=== PATIENT | male | born 1965 | race Caucasian/White ===

== ENCOUNTER 2021-08-15 02:52 | Observation (INO) ==
[2021-08-15 03:21] LABS: BASOPHILS % (AUTO) 0.3 % (0.0-3.0); EOSINOPHILS # (AUTO) 0.1 K/ul (0.0-0.7); EOSINOPHILS % (AUTO) 0.7 % (0.0-7.0); HEMATOCRIT 39.1 % (42.0-52.0); HEMOGLOBIN 12.8 g/dl (14.0-18.0); IMMATURE GRANULOCYTE # (AUTO) 0.1 (0.0-1.0); IMMATURE GRANULOCYTE % (AUTO) 0.7 % (0.0-5.0); LYMPHOCYTES # (AUTO) 3.1 K/uL (0.60-3.4); LYMPHOCYTES % (AUTO) 32.2 (10.0-50.0); MEAN CORPUSCULAR HEMOGLOBIN 34.1 pg (27.0-31.0); MEAN CORPUSCULAR HGB CONC 32.7 (31.8-35.4); MEAN CORPUSCULAR VOLUME 104.3 fl (80.0-94.0); MONOCYTES # (AUTO) 0.7 K/uL (0.4-2.0); MONOCYTES % (AUTO) 7.8 (0-10); NEUTROPHILS # (AUTO) 5.5 K/ul (2.0-6.9); NEUTROPHILS % (AUTO) 58.3 % (42.2-75.2); PLATELET COUNT 191 10^3/uL (140-440); RDW COEFFICIENT OF VARIATION 16.8 % (11.6-14.8); RED BLOOD COUNT 3.75 10^6/ul (4.70-6.10); WHITE BLOOD COUNT 9.52 K/ul (4.2-10.2)
[2021-08-15] MEDS ORDERED: ZOFRAN 4 MG/2 ML IVP ONE (03:26)
[2021-08-15] MEDS ORDERED: SODIUM CHLORIDE 1,000 ML IV STA (03:26)
[2021-08-15 03:32] LABS: ALANINE AMINOTRANSFERASE 18.8 U/L (0-50); ALBUMIN 4.99 g/dL (3.5-5.0); ALKALINE PHOSPHATASE 119.2 U/L (38-126); ASPARTATE AMINO TRANSFERASE 30.6 U/L (17-59); BILIRUBIN,TOTAL 0.58 mg/dL (0.2-1.3); BLOOD UREA NITROGEN 14.6 mg/dL (9-20); CALCIUM 9.22 mg/dL (8.4-10.2); CARBON DIOXIDE 24.3 mmol/L (22-30.0); CHLORIDE 103.9 mmol/L (98-107); CREATINE KINASE 90.5 U/L (55-170); GLUCOSE 134.9 mg/dL (74-106); TOTAL PROTEIN 8.05 g/dL (6.3-8.2)
--- NOTE | 2021-08-15 03:32 | DI ---
EXAM: Chest, one-view HISTORY: Chest Pain FINDINGS: Cardiac and mediastinal contours are normal. Pulmonary vasculature is normal. Lungs are clear. Bony thorax is unremarkable. IMPRESSION: Within normal limits
--- NOTE | 2021-08-15 03:35 | ED.PDOC ---
General ED Provider: Dr. JULIETTE HUNTER Chief Complaint: Chest Pain Stated Complaint: Patient states that he has had intermittent right upper quadrant chest pain radiating to the back for which she has seen her PCP for and had had chest x rays and Aortic U/S which were normal recently. States that he pain comes at rest and goes in minutes and is associated with Diaphoresis and sometimes nausea. He is supposed to be set up for a cardiology consult soon. He was told to come to the ER if the pain got worse. Time Seen by Provider: 08/15/21 02:56 Mode of Arrival: Walk-In Information Source: Patient Primary Care Provider: ROBERTO PENNINGTON Nursing and Triage Documentation Reviewed and Agree: Yes Does patient meet sepsis criteria?: No System Inflammatory Response Syndrome: Not Applicable Sepsis Protocol: For patient's 13 years and over: Temp is 96.8 and below OR 101 and greater Pulse >90 BPM Resp >20/minute Acutely Altered Mental Status Are patient's symptoms suggestive of a new infection, such as: -Pneumonia -Skin, Soft Tissue -Endocarditis -UTI -Bone, Joint Infection -Implantable Device -Acute Abdominal Infection -Wound Infection -Meningitis -Blood Stream Catheter Infection -Unknown Review of Systems Review Of Systems Constitutional: Reports Diaphoresis Eyes: Reports No symptoms Ears, Nose, Mouth, Throat: Reports No symptoms Respiratory: Reports No symptoms Cardiac: Reports Chest pain GI: Reports Abdominal pain (Right upper quadrant ), Nausea and Vomiting : Reports No symptoms Musculoskeletal: Reports No symptoms Neurological: Reports Anxiety Endocrine: Reports No symptoms All Other Systems: Reviewed and Negative Physical Exam Physical Exam Appearance: Reports Ill-appearing and Obese Ill-appearing: Mild Pain Distress: Mild Eyes: Reports Conjunctiva clear ENT: Reports Nose normal and Oropharynx normal Neck: Not Examined Respiratory: Reports Airway patent, Breath sounds clear and Breath sounds equal Cardiovascular: Reports Bradycardia GI/: Reports Soft, Nontender, No masses and Bowel sounds normal Musculoskeletal: Reports Normal strength, ROM intact and No edema Skin: Reports Warm and Dry Neurological: Reports Sensation intact, Motor intact, Alert and Oriented Psychiatric: Reports Anxious Interpretation Radiology Interpretation Radiology Interpretation By: Radiologist Radiology Results: Negative Exam Interpreted: Portable CXR Radiology Interpretation By: Radiologist Radiology Results: Negative Exam Interpreted: CT Scan (Chest abdomen and pelvis ) Healthcare Account Manager Rate: Sahil Rhythm: Sinus Ectopy: None EKG Interpretation Time of EKG #1: 02:57 Rate: Sahil Rhythm: Sinus Ectopy: None Gaines: NL ST Segment: Normal Interpretation: Voltage Critieria for LVH with R wave in aVL > 11 mm( 13) Critical Care Note Critical Care Note Total Critical Care Time (mins): 30 Course Course Hematology/Chemistry: 08/15/21 02:57 08/15/21 02:57 Orders, Labs, Meds: Lab Review 08/15/21 08/15/21 08/15/21 02:57 02:57 03:20 WBC 9.52 RBC 3.75 L Hgb 12.8 L Hct 39.1 L MCV 104.3 H MCH 34.1 H MCHC 32.7 RDW Coeff of Raymundo 16.8 H Plt Count 191 Immature Gran % (Auto) 0.7 Neut % (Auto) 58.3 Lymph % (Auto) 32.2 Eagle % (Auto) 7.8 Eos % (Auto) 0.7 Baso % (Auto) 0.3 Neut # (Auto) 5.5 Lymph # (Auto) 3.1 Eagle # (Auto) 0.7 Eos # (Auto) 0.1 Baso # (Auto) 0.0 Immature Gran # (Auto) 0.1 Sodium 142.0 Potassium 4.00 Chloride 103.9 Carbon Dioxide 24.3 Anion Gap 17.80 BUN 14.6 Creatinine 1.30 H Estimated GFR (MDRD) 57.00 BUN/Creatinine Ratio 11.23 Glucose 134.9 H Calcium 9.22 Total Bilirubin 0.58 AST 30.6 ALT 18.8 Alkaline Phosphatase 119.2 Total Creatine Kinase 90.5 Troponin I < 0.012 Total Protein 8.05 Albumin 4.99 Globulin 3.06 Albumin/Globulin Ratio 1.63 Adenovirus (PCR) Not detected B. pertussis DNA (PCR) Not detected B.parapertussis DNA PCR Not detected C. pneumoniae DNA (PCR) Not detected Coronavirus OC43 (PCR) Not detected Coronavirus HKU1 (PCR) Not detected Coronavirus 229E (PCR) Not detected Coronavirus NL63 (PCR) Not detected Human Metapneumovir PCR Not detected Influenza Type A (PCR) Not detected Influenza B (RT-PCR) Not detected M. pneumoniae (PCR) Not detected Parainfluenza 1 (PCR) Not detected Parainfluenza 2 (PCR) Not detected Parainfluenza 3 (PCR) Not detected Parainfluenza 4 (PCR) Not detected RSV (PCR) Not detected Entero/Rhino (PCR) Not detected SARS-CoV-2 (PCR) Not detected Orders Category Date Time Status EKG-(ED ONLY) Stat CARDIO 08/15/21 02:57 Completed CBC W/ AUTO DIFF Stat LAB 08/15/21 02:57 Completed COMPREHENSIVE METABOLIC PANEL Stat LAB 08/15/21 02:57 Completed CREATINE KINASE Stat LAB 08/15/21 02:57 Completed RESPIRATORY PANEL 2.1 (PCR) Stat LAB 08/15/21 03:20 Completed TROPONIN I Stat LAB 08/15/21 02:57 Completed Ondansetron HCl/Pf [Zofran 4 mg/2 ml] MEDS 08/15/21 03:26 Discontinued 4 mg IVP ONCE ONE Sodium Chloride 0.9% [Sodium Chloride] 1,000 ml MEDS 08/15/21 03:26 Discontinued IV BOLUS CHEST, 1V AP ONLY Stat RADS 08/15/21 02:[address] ABD/PEL WO RENAL STONE PROT Stat RADS 08/15/21 03:[address] CHEST W/O CONTRAST Stat RADS 08/15/21 04:22 Completed Medications Discontinued Medications Generic Name Dose Route Start Last Admin Trade Name Freq PRN Reason Stop Dose Admin Sodium Chloride 1,000 mls @ 1,000 mls/hr 08/15/21 03:26 08/15/21 03:32 Sodium Chloride IV 08/15/21 04:25 1,000 mls/hr BOLUS STA Administration Ondansetron HCl 4 mg 08/15/21 03:26 08/15/21 03:32 Ondansetron Hcl/Pf 4 Mg/2 Ml Sdv IVP 08/15/21 03:27 4 mg ONCE ONE Administration Vital Signs: Temp Pulse Resp BP Pulse Ox 08/15/21 02:56 97.2 F L 55 L 18 189/81 H 99 LELAND Risk Score Age >/= 65: No >/= 3 CAD Risk Factors: No Known CAD (Stenosis >/= 50%): No ASA Use in Past 7 Days: No Severe Angina (>/= 2 episodes in 24 hours): Yes EKG ST Changes >/= 0.5mm: No Postive Cardiac Marker: No LELAND Total Score: 1 LELAND Risk Score: Risk Score Odds of by 30D 0 0.1 (0.1-0.2) 1 0.3 (0.2-0.3) 2 0.4 (0.3-0.5) 3 0.7 (0.6-0.9) 4 1.2 (1.0-1.5) 5 2.2 (1.9-2.6) 6 3.0 (2.5-3.6) 7 4.8 (3.8-6.1) Discharge Plan Discharge Patient Disposition: PLACED OBSERVATION Discharge Problem: Chest pain ED Provider: JULIETTE HUNTER Condition: Fair Physician Progress Note: []
[2021-08-15 03:44] LABS: TROPONIN I < 0.012 ng/ml (0.0000-0.120)
[2021-08-15 04:37] LABS: ADENOVIRUS (PCR) NOT DETECTED (NOT DETECT); BORDETELLA PARAPERTUSSIS (PCR) NOT DETECTED (NOT DETECT); BORDETELLA PERTUSSIS (PCR) NOT DETECTED (NOT DETECT); CHLAMYDIA PNEUMONIAE (PCR) NOT DETECTED (NOT DETECT); CORONAVIRUS 229E (PCR) NOT DETECTED (NOT DETECT); CORONAVIRUS HKU1 (PCR) NOT DETECTED (NOT DETECT); CORONAVIRUS NL63 (PCR) NOT DETECTED (NOT DETECT); CORONAVIRUS OC43 (PCR) NOT DETECTED (NOT DETECT); HUMAN METAPNEUMOVIRUS (PCR) NOT DETECTED (NOT DETECT); HUMAN RHINOVIRUS/ENTEROV (PCR) NOT DETECTED (NOT DETECT); INFLUENZA B (PCR) NOT DETECTED (NOT DETECT); MYCOPLASMA PNEUMONIAE (PCR) NOT DETECTED (NOT DETECT); PARAINFLUENZA VIRUS 1 (PCR) NOT DETECTED (NOT DETECT); PARAINFLUENZA VIRUS 2 (PCR) NOT DETECTED (NOT DETECT); PARAINFLUENZA VIRUS 3 (PCR) NOT DETECTED (NOT DETECT); PARAINFLUENZA VIRUS 4 (PCR) NOT DETECTED (NOT DETECT); RESPIRATORY SYNCYTIAL V (PCR) NOT DETECTED (NOT DETECT); SARS_COV_2 (PCR) NOT DETECTED (NOT DETECT)
--- NOTE | 2021-08-15 04:56 | CT ---
Exam: CT of the chest without contrast History: Lower chest pain Technique: [address] of the chest without contrast FINDINGS: Lung windows show no pulmonary parenchymal abnormality. Minor atherosclerotic calcificati on of the aorta without aneurysm. Atherosclerotic calcification of the coronary arteries. No medias tinal lymphadenopathy. No acute abnormalities of the chest wall soft tissues or bony thorax. Mild m ultilevel endplate spondylosis of the thoracic spine. No central canal stenosis. No abnormalities o f the upper abdomen. Impression: 1. No acute findings of the chest All CT scans are performed using dose optimization techniques as appropriate to the performed exam an d include at least one of the following: Automated exposure control, adjustment of the mA and/or kV according t o size, and the use of iterative reconstruction technique.
--- NOTE | 2021-08-15 04:59 | CT ---
Exam: CT of the abdomen and pelvis without contrast History: Right upper quadrant pain Technique: [address] of the abdomen and pelvis without contrast FINDINGS: No significant liver abnormality. The adrenals, pancreas and spleen are unremarkable. Th e gallbladder is elongated measuring 11 cm long axis. No calcified cholelithiasis is seen. No peric holecystic inflammation. Minor hiatus hernia. Kidneys and proximal collecting system are unremarkab le. The appendix is normal. Bowel loops demonstrate normal caliber. No inflamatory change seen in the mesentery or retroperitoneum. Vascular structures appear normal by noncontrast CT. Pelvic genitourinary structures appear normal. Pelvic bowel loops are unremarkable. No inflammatory change in the pelvic fat. No acute abnormality of the abdominal or pelvic skeleton. Mild degenerat khoa change of the lumbar spine. Impression: 1. No inflammatory process, bowel or urinary obstruction 2. Elongated hydropic gallbladder without surrounding inflammation or visible calculus. All CT scans are performed using dose optimization techniques as appropriate to the performed exam an d include at least one of the following: Automated exposure control, adjustment of the mA and/or kV according t o size, and the use of iterative reconstruction technique.
[2021-08-15] MEDS ORDERED: ASPIRIN CHEWABLE PO STA (05:40)
[2021-08-15] MEDS ORDERED: NITROSTAT SL PRN (05:41)
[2021-08-15] MEDS ORDERED: TYLENOL PO PRN (05:41)
[2021-08-15] MEDS ORDERED: ATROPINE SULFATE PFS IVP PRN (05:41)
[2021-08-15] MEDS ORDERED: ASPIRIN EC PO SCH (08:30)
[2021-08-15] MEDS ORDERED: ZESTRIL PO SCH (09:00)
[2021-08-15] MEDS ORDERED: SYNTHROID PO SCH (09:00)
[2021-08-15] MEDS ORDERED: DASATINIB PO SCH ×2 (09:00→12:00)
[2021-08-15] MEDS ORDERED: DECADRON IM ONE (09:16)
[2021-08-15] MEDS ORDERED: TORADOL IVP ONE (09:17)
[2021-08-15 09:19] LABS: BASOPHILS % (AUTO) 0.1 % (0.0-3.0); HEMATOCRIT 33.8 % (42.0-52.0); HEMOGLOBIN 11.4 g/dl (14.0-18.0); IMMATURE GRANULOCYTE % (AUTO) 0.5 % (0.0-5.0); LYMPHOCYTES # (AUTO) 0.9 K/uL (0.60-3.4); LYMPHOCYTES % (AUTO) 10.8 (10.0-50.0); MEAN CORPUSCULAR HEMOGLOBIN 34.8 pg (27.0-31.0); MEAN CORPUSCULAR HGB CONC 33.7 (31.8-35.4); MONOCYTES # (AUTO) 0.4 K/uL (0.4-2.0); MONOCYTES % (AUTO) 4.3 (0-10); NEUTROPHILS # (AUTO) 7.1 K/ul (2.0-6.9); NEUTROPHILS % (AUTO) 84.3 % (42.2-75.2); PLATELET COUNT 164 10^3/uL (140-440); RDW COEFFICIENT OF VARIATION 16.9 % (11.6-14.8); RED BLOOD COUNT 3.28 10^6/ul (4.70-6.10); WHITE BLOOD COUNT 8.39 K/ul (4.2-10.2)
[2021-08-15 09:23] LABS: CREATINE KINASE 88.3 U/L (55-170)
[2021-08-15] MEDS ORDERED: PROTONIX PO SCH (09:30)
[2021-08-15 09:31] LABS: CHOLESTEROL 184.8 mg/dL (0-200); HDL CHOLESTEROL 44.5 mg/dL (35-60)
[2021-08-15 09:36] LABS: TROPONIN I 0.016 ng/ml (0.0000-0.120)
[2021-08-15 10:02] LABS: THYROID STIMULATING HORMONE 5.84 uIU/L (0.465-4.68)
[2021-08-15 10:18] VITALS: TEMP 99; BMI 34.0
--- NOTE | 2021-08-15 10:43 | PCM.CONS ---
CONSULTING PROVIDER: Dr. MARY JEFFERS ATTENDING PROVIDER: Dr. LENNIE ARROYO MD DATE OF SERVICE: 08/15/21 SUBJECTIVE: This 55 year old /WHITE M was hospitalized 08/15/21 with chest pain right sided. Started a few months ago when he lifted 50 packs of water. Intermittent when he lifts anything or works outside. Walk or exertion has no effect at all even at rest may get chest pain. No associated shortness of breath or sweating. REVIEW OF SYSTEMS: CONSTITUTIONAL: No night sweats. No fatigue, malaise, lethargy. No fever or chills. HEENT: Eyes: No visual changes. No eye pain. No eye discharge. ENT: No runny nose. No epistaxis. No sinus pain. No odynophagia. No congestion. RESPIRATORY: No cough, no congestion. No hemoptysis. No shortness of breath. CARDIOVASCULAR: No angina symptoms. No CHF symptoms. Chest pain as described. No palpitations. No orthopnea. GASTROINTESTINAL: No abdominal pain. No nausea or vomiting. No diarrhea or constipation. No hematemesis. No hematochezia. GENITOURINARY: No urgency. No frequency. No dysuria. No hematuria. No obstructive symptoms. No discharge. No pain. No significant abnormal bleeding. MUSCULOSKELETAL: No musculoskeletal pain; no joint swelling. NEUROLOGICAL: Awake, alert, oriented to time, place and person. No headache. No neck pain. No syncope. No seizures. No dizziness. PSYCHIATRIC: Not anxious. No depression. No suicidal thoughts. No homicidal thoughts. SKIN: No rash. No lesions. No wounds. ENDOCRINE: No unexplained weight loss. No weight gain. HEMATOLOGIC/LYMPHATIC: No anemia. No purpura. No petechiae. No prolonged or excessive bleeding. No palpable lymph nodes. MEDICATIONS: Lisinopril 20mg daily Levothyroxine 25mcg Po daily Sprycel 80mg PO daily ALLERGIES: None PAST MEDICAL HISTORY/PAST SURGICAL HISTORY: Chronic kidney disease Hypertension Hypothyroidism, lipid profile unknown Chronic myeloid leukemia followed by Dr. Shelly FAULKNER by CT scan of the chest DJD of Thoracic spine. SOCIAL/PERSONAL/FAMILY HISTORY: The patient is lives with . Does all activity of daily living. No alcohol. No drug abuse. PHYSICAL EXAMINATION: GENERAL: The patient is awake, alert and oriented to time, place and person, sitting in bed in no distress. VITAL SIGNS: Temperature 97.2 F, Pulse 55, Respiratory Rate 18, BP 189/81, P ulse Ox 99% HEENT: Head normocephalic, atraumatic. Eyes: Extraocular muscles are intact. Pupils are equal, round and reactive to light and accommodation. Ears: No lesions. Nose appeared normal. Throat: No exudate or erythema. NECK: Supple. No JVD, no carotid bruit. No lymphadenopathy or thyromegaly. LUNGS: Clear to auscultation. Percussion note normal. Chest symmetrical. HEART: S1, S2, no S3. No murmurs. No cyanosis or clubbing. No ascites. Pulses: Dorsalis pedis and posterior tibial pulses +1 to +2 both sides. ABDOMEN: Soft. Non-tender. Bowel sounds active. No CVA tenderness. No mass felt. EXTREMITIES: No edema. Full range of motion of all extremities, equal. NEUROLOGIC: No focal deficit. Cranial nerves II through XII are grossly intact. No headache, no double vision or headache. SKIN: Warm and dry. Intact. Turgor-normal. LYMPHATIC: No palpable lymph nodes/no lymphedema. MUSCULOSKELETAL: Normal joints with no swelling. Muscle tone is normal. LAB REVIEW: 08/15/21 02:57 08/15/21 02:57 08/15/21 03:20: Adenovirus (PCR) Not detected, B. pertussis DNA (PCR) Not detected, B.parapertussis DNA PCR Not detected, C. pneumoniae DNA (PCR) Not detected, Coronavirus OC43 (PCR) Not detected, Coronavirus HKU1 (PCR) Not detected, Coronavirus 229E (PCR) Not detected, Coronavirus NL63 (PCR) Not detected, Human Metapneumovir PCR Not detected, Influenza Type A (PCR) Not detected, Influenza B (RT-PCR) Not detected, M. pneumoniae (PCR) Not detected, Parainfluenza 1 (PCR) Not detected, Parainfluenza 2 (PCR) Not detected, Parainfluenza 3 (PCR) Not detected, Parainfluenza 4 (PCR) Not detected, RSV (PCR) Not detected, Entero/Rhino (PCR) Not detected, SARS-CoV-2 (PCR) Not detected 08/15/21 02:57: Sodium 142.0, Potassium 4.00, Chloride 103.9, Carbon Dioxide 24.3, Anion Gap 17.80, BUN 14.6, Creatinine 1.30 H, Estimated GFR (MDRD) 57.00, BUN/Creatinine Ratio 11.23, Glucose 134.9 H, Calcium 9.22, Total Bilirubin 0.58, AST 30.6, ALT 18.8, Alkaline Phosphatase 119.2, Total Creatine Kinase 90.5, Troponin I < 0.012, Total Protein 8.05, Albumin 4.99, Globulin 3.06, Albumin/Globulin Ratio 1.63 08/15/21 02:57: WBC 9.52, RBC 3.75 L, Hgb 12.8 L, Hct 39.1 L, MCV 104.3 H, MCH 34.1 H, MCHC 32.7, RDW Coeff of Raymundo 16.8 H, Plt Count 191, Immature Gran % (Auto) 0.7, Neut % (Auto) 58.3, Lymph % (Auto) 32.2, Alfalfa % (Auto) 7.8, Eos % (Auto) 0.7, Baso % (Auto) 0.3, Neut # (Auto) 5.5, Lymph # (Auto) 3.1, Alfalfa # (Auto) 0.7, Eos # (Auto) 0.1, Baso # (Auto) 0.0, Immature Gran # (Auto) 0.1 EKG showed sinus rhythm, ST-T wave changes nonsignificant. Bradycardia with LVH ASSESSMENT: 1. Chest pain, right sided, fairly atypical for CAD 2. Chronic kidney disease 3. Hypertension 4. Hypothyroidism, lipid profile unknown 5. Chronic myeloid leukemia followed by Dr. Bravo 6. CAD by CT scan of the chest 7. DJD of Thoracic spine. Please see below. RECOMMENDATIONS/PLAN: 1. Continue Telemetry with oximetry and serial EKG and Cardiac markers. 2. Echo 3. Stress echo 4. Lipid profile 5. T4 TSH 6. BMI 34 ideal should be 23 +/- 2. 7. Counseling for diet and weigh loss done 8. Blood pressure is out of control we will try to adjust medication if needed Thanks for referral, will follow. Plan and coordination of the patient's care discussed in the presence of Senior Consulting Manager and Nurse. SCRIBED BY: MANI LOPEZ Rope Walker scribed while in presence of service performed by Dr. MARY JEFFERS on 08/15/21 ([id number])
[2021-08-15 13:52] VITALS: BP 130/50
--- NOTE | 2021-08-15 14:09 | STRESSECHO ---
Date of Test: O2 Ordering Physician: DR. HUNTER HOSPITALIST Occupation:DISABLED Reason for Exam: CHEST PAIN, HTN Smoking History: NONE Height: 71" Weight: 247 LBS Current Medications: LEVOTHYROXINE, SPRYCEL, LISINOPRIL Resting EKG: SINUS RHYTHM/ NO ACUTE CHANGES Target Heart Rate: 139 S-T SEGMENT STAGE MPH/GRADE HEART RATE BPM BLOOD PRESSURE MMHG RHYTHM +/- ELEVATION DEPRESSION SYMPTOMS AT REST 54 BPM 140/60 MMHG SR X NONE 1 1.7/10% 2 2.5/12% 132 BPM 160/60 MMHG SR X NONE 3 3.4/14% 4 4.2/16% 5 5.0/18% Immediately After 132 BPM SR X SHORT OF AIR Minutes Post Exercise Minutes Post Exercise DURATION OF EXERCISE: 2:18 MAXIMUM HEART RATE REACHED: 132 BPM REASON FOR TERMINATION: SHORT OF AIR 97% OXYGEN SATURATION WITH EXERCISE ON ROOM AIR METS 7.0 INTERPRETATION: 1. NO EVIDENCE OF ISCHEMIA BY ST-T WAVE 2. NO CHEST PAIN OR DISCOMFORT 3. NO ARRHYTHMIAS 4. BLOOD PRESSURE RESPONSE: NORMAL NORMAL LEFT VENTRICLE CONTRACTILITY--RESTING AND POST EXERCISE MTDD
--- NOTE | 2021-08-15 14:10 | ECHOSTRESS ---
Date of Exam: 08/15/2021 Ordering Physician: DR. HUNTER--HOSPITALIST Reason for Echo: CHEST PAIN, HTN M-Mode Normal Adult Results LV Dimensions Normal Adult Results AoV Opening excursions >1.6 LVEDD-base- 3.5-5.8 Ao root dimensions 2.0-3.7 LVESD-base- 3.1-4.6 L. Atrium dimensions 1.9-3.8 Post. Wall thickness 0.8-1.1 IV septum (thickness) 0.7-1.2 Post. Wall excursion 0.72-1.3 Septal motion Systolic motion R. Ventricular cavity 1.5-2.0 LVEF 60% Paradoxical septal wall motion 2-D: NORMAL LEFT VENTRICLE CONTRACTILITY--RESTING AND POST EXERCISE M-MODE: MV: AV: TV: PV: CHAMBER SIZE: WALL MOTION: NORMAL LEFT VENTRICLE CONTRACTILITY--RESTING AND POST EXERCISE PERICARDIUM: INTERPRETATION: 1. NORMAL LEFT VENTRICLE CONTRACTILITY--RESTING AND POST EXERCISE MTDD
--- NOTE | 2021-08-15 14:16 | ECHO2D ---
Date of Exam: 08/15/2021 Ordering Physician: DR. HUNTER--HOSPITALIST Room #: [id number] Reason for Echo: CHEST PAIN, HTN M-Mode Normal Adult Results LV Dimensions Normal Adult Results AoV Opening excursions >1.6 >1.6 LVEDD-base- 3.5-5.8 5.8 Ao root dimensions 2.0-3.7 3.4 LVESD-base- 3.1-4.6 L. Atrium dimensions 1.9-3.8 6.1 Post. Wall thickness 0.8-1.1 1.2 IV septum (thickness) 0.7-1.2 1.3 Post. Wall excursion 0.72-1.3 NORMAL Septal motion NORMAL Systolic motion R. Ventricular cavity 1.5-2.0 3.0 LVEF 60% 68% Paradoxical septal wall motion NORMAL 2-D : 2-D M Mode Echocardiogram was performed using apical four chamber and left parasternal long and short axis views. Mitral, tricuspid and aortic valves appear to be normal. Contractility of the left ventricle seems to be normal. ENLARGED LEFT ATRIAL AND LEFT VENTRICLE CAVITIES. Aortic root appears to be normal. There is no pericardial effusion. There is no thrombus noted in the left ventricle or left atrial cavity. RIGHT VENTRICLE CAVITY ENLARGEMENT. M-MODE: MV: NORMAL AV: NORMAL TV: NORMAL PV: CHAMBER SIZE: ENLARGED LEFT ATRIAL, RIGHT VENTRICLE CAVITIES, BORDERLINE LEFT VENTRICLE CAVITY ENLARGEMENT WALL MOTION: NORMAL PERICARDIUM: NORMAL INTERPRETATION: 1. LEFT VENTRICLE HYPERTROPHY WITH ENLARGED LEFT ATRIAL CAVITY (6.1 CM) 2. BORDERLINE ENLARGED LEFT VENTRICLE CAVITY 3. RIGHT VENTRICLE CAVITY ENLARGEMENT 4. NORMAL VALVES 5. NORMAL LEFT VENTRICLE CONTRACTILITY MTDD
--- NOTE | 2021-08-15 14:45 | PCM.PROG ---
Date Seen by Provider: 08/15/21 Time Seen by Provider: 14:39 Subjective: No acute chest pain or SOB Objective: Vitals: T=99 F, P=60, R=18, IL=479/50, SPO2=98 HEENT: []wnl Neck: []supple Lungs: []chest was clear CVS: []RRR Abdomen: []benign Extremities: []no acute abnormality Neurological: []non-focal Skin: []wnl. Lab/Tests/Diagnostic Imaging: [] (1) Chest pain: Status: Acute Code(s): R07.9 - Chest pain, unspecified SNOMED Code(s): 80757751 Plan: 1. Pt Cardiology consult was d/w Dr Quan. 2. For discharge home. Early PMD review 1-2 days. Continue home meds.
--- NOTE | 2021-08-15 14:53 | PCM.DC ---
Final Diagnosis: Chest pain (1) Chest pain: Status: Acute Code(s): R07.9 - Chest pain, unspecified SNOMED Code(s): 22049140 (2) Hypertension: Status: Acute Code(s): I10 - Essential (primary) hypertension SNOMED Code(s): 63881752 Reason for Hospitalization: Pt had persistent angina and elevated BP. Prognosis at Discharge: Fair Condition at Discharge: Stable Medications at Discharge: Ambulatory Orders Medication Instructions Recorded dasatinib 80 mg tablet (Sprycel) 80 mg PO DAILY 08/15/21 levothyroxine 25 mcg tablet 25 mcg PO DAILY 08/15/21 lisinopril 20 mg tablet 20 mg PO DAILY 08/15/21 Education Provided to Patient and Family: Angina Follow-ups: PMD in 1-2 days. Discharge Disposition: Home Hospital Course: Pt was pain-free and stable in the hospital. Post Cardiology consult: pt may go home. Plan: See discharge orders.
[2021-08-15 15:25] LABS: CREATINE KINASE 88.8 U/L (55-170)
[2021-08-15 15:38] LABS: TROPONIN I < 0.012 ng/ml (0.0000-0.120)
--- NOTE | 2021-08-15 15:40 | US ---
EXAM: Carotid ultrasound HISTORY: Dizziness COMPARISON: None TECHNIQUE: Carotid ultrasound was performed using Duplex imaging with fields scale, color, and Doppler imaging performed. FINDINGS: Right carotid: There is atherosclerotic plaque in the common carotid and bulb/internal carotid arter y with visual estimate of narrowing mild left less than 50%. Peak systolic velocity measurement in t he right internal carotid artery is 0.77 meters per second. End-diastolic velocity measurement in th e right internal carotid artery is 0.17 meters per second. Right internal to common carotid artery p eak systolic velocity ratio is 0.8. Flow in the right vertebral artery is antegrade. Left carotid: There is atherosclerotic plaque in the common carotid and bulb/internal carotid artery with visual estimate of narrowing mild. Peak systolic velocity measurement in the left internal car otid artery is 1.36 meters per second. End-diastolic velocity measurement in the left internal carot id artery is 0.22 meters per second. Left internal to common carotid artery peak systolic velocity r atio measures 1.2. Flow in the left vertebral artery is antegrade. IMPRESSION: 1. Right internal carotid: Peak systolic velocity corresponds with mild (less than 50%) stenosis 2. Left internal carotid: Peak systolic velocity corresponds with moderate (50 - 69%) stenosis; archuleta myles, the visual estimate of narrowing is mild.
[2021-08-16] MEDS ORDERED: ASPIRIN EC PO SCH (09:00)
== END 2021-08-15 16:55 | disposition home or self-care (01) ==
LOC: ED 02:52 → MEDSURG A 02:52
PROVIDERS: ADMIT Internal Medicine Geriatric Medicine; ATTEND Emergency Medicine
DX: R10.11 Right upper quadrant pain; I10 Essential (primary) hypertension; R11.2 Nausea with vomiting, unspecified; F41.9 Anxiety disorder, unspecified